=== PATIENT | female | born 1950 | race Caucasian/White ===

== ENCOUNTER 2021-06-04 13:31 | Emergency (ER) | payer MEDICARE ==
[~2021-06-04] VITALS: Ht 162.6 cm; Wt 74.8 kg
[2021-06-04] MEDS ORDERED: ACET-66 PO (15:35)
[2021-06-04 16:00] VITALS: BP 132/88
== END 2021-06-04 16:01 | disposition home or self-care (01) ==
LOC: EDH 13:31
DX: S06.0X0A Concussion without loss of consciousness, initial encounter (principal); M53.3 Sacrococcygeal disorders, not elsewhere classified; M06.9 Rheumatoid arthritis, unspecified; Z88.8 Allergy status to other drugs, medicaments and biological substances; W18.39XA Other fall on same level, initial encounter; Y93.89 Activity, other specified; Y92.89 Other specified places as the place of occurrence of the external cause; Y99.8 Other external cause status
CPT/HCPCS: 70450; 72125; 72220